=== PATIENT | female | born 1985 | race Hispanic/Latino ===

== ENCOUNTER 2022-11-02 15:53 | Emergency (ER) | payer OTHER ==
[2022-11-02 17:11] LABS: #Basophils 0.1 10x3/uL (0.0-0.2); #Eosinphils 0.2 10x3/uL (0.0-0.5); #Monocytes 0.7 10x3/uL (0.0-1.1); #Neutrophils 11.1 10x3/uL (1.5-8.4); %Basophils 0.5 % (0.0-2.0); %Eosinophils 1.1 % (0.0-6.0); %Lymphocytes 14.1 % (18.0-47.0); %Monocytes 5.2 % (0.0-10.0); %Neutrophils 78.7 % (40.0-75.0); Hemoglobin 12.3 g/dL (12.0-15.5); Mean Corpuscular HGB CONC 34.2 g/dL (32.0-36.0); Mean Corpuscular Hemoglobin 31.6 pg (27.0-33.0); Mean Corpuscular Volume 92.5 fl (81.6-98.3); Mean Platelet Volume 10.1 fl (7.4-10.4); Platelet Count 295 10x3/uL (150-450); RBC Distribution Width 12.9 % (11.5-14.5); Red Blood Cell (RBC) Count 3.89 10x6/uL (3.90-5.03); White Blood Cell (WBC) Count 14.1 10x3/uL (3.5-10.5)
[2022-11-02 17:15] LABS: BHCG - Serum Negative (NEGATIVE); Pregs Control Background? CLEAR/WHITE (CLR/WHITE); Pregs Control Bar Appear? YES (CONTROL BAR)
[2022-11-02 17:21] LABS: ALT (SGPT) 32 U/L (8-55); AST (SGOT) 30 U/L (5-34); Albumin 4.5 g/dL (3.5-5.0); Alkaline Phosphatase 93 U/L (40-110); Anion Gap 11 mmol/L (10-20); BUN (Urea Nitrogen) 13 mg/dL (7.0-18.7); Bilirubin, Total 1.5 mg/dL (0.2-1.2); Calc. Creatinine Clearance 0 mL/min (70-130); Calcium 9.4 mg/dL (7.8-10.44); Carbon Dioxide 25 mmol/L (22-29); Chloride 107 mmol/L (98-107); Estimated GFR 115; Globulin 2.9 g/dL (2.4-3.5); Glucose 121 mg/dL (70-105); Potassium 3.5 mmol/L (3.5-5.1); Protein, Total 7.4 g/dL (6.0-8.3); Sodium 139 mmol/L (136-145)
== END 2022-11-02 19:07 | disposition home or self-care (01) ==
LOC: CSHERS 15:53
DX: R10.9 Unspecified abdominal pain (principal); R07.9 Chest pain, unspecified; D72.829 Elevated white blood cell count, unspecified; V49.9XXA Car occupant (driver) (passenger) injured in unspecified traffic accident, initial encounter
CPT/HCPCS: 71260; 74177; 80053; 84703; 85025; 93005

== ENCOUNTER 2024-07-07 13:36 | Inpatient (IN) | payer OTHER, SELFPAY ==
[2024-07-07] MEDS ORDERED: Misoprostol 200 MCG TAB PR PRN (14:54)
[2024-07-07] MEDS ORDERED: Methylergonovine 0.2 MG/ML VIAL IM PRN (14:54)
[2024-07-07] MEDS ORDERED: Promethazine HCl 25 MG/ML VIAL IM PRN (14:54)
[2024-07-07] MEDS ORDERED: Ibuprofen 800 MG TAB PO PRN (14:54)
[2024-07-07] MEDS ORDERED: Tranexamic Acid 1,000 MG/10 ML VIAL IVP PRN (14:54)
[2024-07-07] MEDS ORDERED: Lidocaine 1% (PF) 30 ML VIAL SC PRN (14:54)
[2024-07-07] MEDS ORDERED: Acetaminophen 500 MG TAB PO PRN (14:54)
[2024-07-07] MEDS ORDERED: Diphenoxylate HCl/Atropine Tablet PO PRN ×2 (14:54)
[2024-07-07] MEDS ORDERED: Carboprost 250 MCG/ML AMP IM PRN (14:54)
[2024-07-07] MEDS ORDERED: hydrALAZINE 20 MG/ML VIAL SLOW IVP PRN (14:54)
[2024-07-07] MEDS ORDERED: Oxytocin 30 units/NS 500 ML 500 ML IV SCH ×3 (15:00)
[2024-07-07 15:53] LABS: Hematocrit 38.3 % (34.9-44.5); Hemoglobin 12.9 g/dL (12.0-15.5); Mean Corpuscular HGB CONC 33.7 g/dL (32.0-36.0); Mean Corpuscular Hemoglobin 33.2 pg (27.0-33.0); Mean Corpuscular Volume 98.5 fL (81.6-98.3); Platelet Count 250 10x3/uL (150-450); Red Blood Cell (RBC) Count 3.89 10x6/uL (3.90-5.03); White Blood Cell (WBC) Count 10.4 10x3/uL (3.5-10.5)
[2024-07-07 16:17] LABS: HBsAg Index 0.21 S/CO (0-0.99); Hep B Surf Ag - L&D Non-Reactive S/CO (NonReactive)
[2024-07-07 16:19] LABS: Syphilis Antibody Nonreactive (Nonreactive); Syphilis Antibody Index 0.05 S/CO (<1.00 Non-Reactive)
[2024-07-07] MEDS: Misoprostol 100 MCG TAB VAG SCH (16:42)
[2024-07-07 17:39] VITALS: BMI 31.2
[2024-07-08] MEDS: Penicillin G Potassium 5 MILL.UNITS in Sodium Chloride 0.9% 100 ML IVPB SCH (00:55)
[2024-07-08] MEDS: Penicillin G Potassium 5 MILL.UNITS VIAL ONE (00:55)
[2024-07-08] MEDS: Penicillin G 2.5 MILL.units 2.5 MILL.UNITS in Premix 1 BAG IVPB SCH (05:01)
[2024-07-08] MEDS: Ondansetron PF 4 MG/2 ML Vial IVP PRN (07:46)
[2024-07-08] MEDS: fentaNYL 50 mcg/mL 1 mL Vial SLOW IVP PRN (07:46)
[2024-07-08] MEDS: fentaNYL/Ropivacaine Epidural 100 ML ONE (09:59)
[2024-07-08] MEDS ORDERED: Moisturizing Cream (Eucerin) 113 GM JAR TOP PRN (10:06)
[2024-07-08] MEDS ORDERED: Acetaminophen 325 MG TAB PO PRN (10:06)
[2024-07-08] MEDS ORDERED: Ondansetron PF 4 MG/2 ML Vial IVP PRN (10:06)
[2024-07-08] MEDS ORDERED: Naloxone HCl 0.4 mg/ml Vial IVP PRN ×2 (10:06)
[2024-07-08] MEDS ORDERED: ePHEDrine Sulfate 50 MG/10 ML VIAL SLOW IVP PRN (10:06)
[2024-07-08] MEDS ORDERED: Promethazine HCl 25 MG/ML VIAL IM PRN (10:06)
[2024-07-08] MEDS ORDERED: diphenhydrAMINE 50 MG/ML VIAL IVP PRN (10:06)
[2024-07-08] MEDS ORDERED: Communication Order-Pharmacy FS SCH (10:15)
[2024-07-08] MEDS ORDERED: fentaNYL 2 mcg/Ropivacaine 0.2% Epidural 100 ML CADD EPIDURAL SCH (10:15)
[2024-07-08] MEDS ORDERED: Lactated Ringer's 500 ML IV PRN (10:24)
[2024-07-08] MEDS: Lactated Ringer's 1,000 ML IV SCH (18:37)
[2024-07-08] MEDS: Ibuprofen 800 MG TAB PO SCH (23:02)
[2024-07-09] MEDS ORDERED: Promethazine HCl 25 MG/ML VIAL IM PRN (06:00)
[2024-07-09] MEDS ORDERED: Ondansetron PF 4 MG/2 ML Vial IVP PRN (06:00)
[2024-07-09] MEDS ORDERED: Bisacodyl 10 MG SUPP PR PRN (06:00)
[2024-07-09] MEDS ORDERED: Milk Of Magnesia 30 ML UDCUP PO PRN (06:00)
[2024-07-09] MEDS ORDERED: Lanolin Ointment 7 GM TUBE TOP PRN (06:00)
[2024-07-09] MEDS ORDERED: diphenhydrAMINE 25 MG CAP PO PRN (06:00)
[2024-07-09] MEDS ORDERED: Oxytocin 30 units/NS 500 ML 500 ML IV SCH (06:00)
[2024-07-09] MEDS ORDERED: Preparation H Ointment 28 GM TUBE PR PRN (06:00)
[2024-07-09] MEDS ORDERED: Benzocaine-Menthol 82.5 ML CAN TOP PRN (06:00)
[2024-07-09] MEDS ORDERED: hydrALAZINE 20 MG/ML VIAL SLOW IVP PRN (06:00)
[2024-07-09] MEDS: Ibuprofen 800 MG TAB PO SCH (07:34)
[2024-07-09] MEDS: Boostrix 0.5 ML (Tdap) VIAL (>/=7 yrs of age) IM ONE (07:34)
[2024-07-09] MEDS: Ferrous Sulfate 325 MG TAB PO SCH (07:39)
[2024-07-09] MEDS: Docusate 100 MG CAP PO SCH (07:57)
[2024-07-09] MEDS: Prenatal Vitamin 1 TAB PO SCH (07:57)
[2024-07-10 07:52] VITALS: BP 106/55; TEMP 98.1
== END 2024-07-10 17:50 | disposition home or self-care (01) | DRG 806 ==
LOC: CSHLD 13:36 → CSHPP 07-09
PROVIDERS: ADMIT Family Medicine; ATTEND Family Medicine
PROC: 0U7C7ZZ Dilation of Cervix, Via Natural or Artificial Opening (ICD-10-PCS; principal; 2024-07-08)
PROC: 10E0XZZ Delivery of Products of Conception, External Approach (ICD-10-PCS; 2024-07-08)
PROC: 10907ZC Drainage of Amniotic Fluid, Therapeutic from Products of Conception, Via Natural or Artificial Opening (ICD-10-PCS; 2024-07-08)
PROC: 0HQ9XZZ Repair Perineum Skin, External Approach (ICD-10-PCS; 2024-07-08)
DX: O24.425 Gestational diabetes mellitus in childbirth, controlled by oral hypoglycemic drugs (principal); O41.03X0 Oligohydramnios, third trimester, not applicable or unspecified; Z37.0 Single live birth; Z79.82 Long term (current) use of aspirin; Z79.899 Other long term (current) drug therapy; Z3A.36 36 weeks gestation of pregnancy; O09.513 Supervision of elderly primigravida, third trimester; Z79.84 Long term (current) use of oral hypoglycemic drugs; O99.824 Streptococcus B carrier state complicating childbirth; O70.0 First degree perineal laceration during delivery; O69.81X0 Labor and delivery complicated by cord around neck, without compression, not applicable or unspecified
CPT/HCPCS: 36415; 36416; 51702; 85027; 86780; 86850; 86900; 86901; 87340; 88307; J2405; J2540; J3010